=== PATIENT | male | born 1990 | race Caucasian/White ===

== ENCOUNTER → 2023-12-21 | Outpatient (REF) | payer OTHER | LOC: M SMT 10:13 | PROVIDERS: ATTEND Urology | DX: Z30.2 Encounter for sterilization (principal) ==

== ENCOUNTER → 2024-03-02 | Outpatient (REF) | payer OTHER ==
[2024-03-02 13:21] LABS: SEMEN APPEARANCE OPAQUE (OPAQUE); SEMEN VISCOSITY LIQUID (LIQUID); SEMEN VOLUME 1.3 ml (2.0-5.0); SEMEN pH 8.5 (7.0-8.0); WBC CONCENTRATION >1 M/ml (<=1 M/ml)
== END ==
LOC: M SMT 12:53
PROVIDERS: ATTEND Urology
DX: Z30.2 Encounter for sterilization (principal)